=== PATIENT | male | born 1960 | race Caucasian/White ===

== ENCOUNTER 2016-10-22 06:39 | Day surgery (SDC) | payer BC ==
[~2016-10-22] VITALS: Ht 172.7 cm; Wt 103.7 kg
[~2016-10-22 06:39] MED LIST: ATORVASTATIN CA40 MG PO; CHOLEST OFF PL450 MG PO; CIALIS5 MG PO; FIBER GUMMIES1 EACH PO; FISH OIL 1,0001 EAC7 PO; FLEXERIL5 MG PO; IBUPROFEN600 MG PO; LO-DOSE ASPIRIN81 M2 PO; METOPROLOL PO; METOPROLOL SUCC50 MG PO; ONE DAILY FOR1 EACH PO; TRAMADOL HCL50 MG PO; TUMS500 MG PO; URINOZINC PROS1 EACH PO
[2016-10-22 19:50] VITALS: BP 137/71
[2016-10-23 01:26] VITALS: BP 128/65
[2016-10-23 04:35] LABS: EOSINOPHIL (%) 2.3 % (0-5); EOSINOPHIL COUNT 0.2 K/uL (0-0.3); HEMATOCRIT 42.1 % (38.0-50.0); IMMATURE GRANULOCYTE (%) 0.2 % (0.0-0.7); INSTRUMENT ABS NEUTROPHIL CT 4.9 K/uL; LYMPHOCYTE COUNT 2.8 K/uL (1.0-2.8); MCH 30.1 PG (29.0-34.0); MCHC 34.2 G/DL (30.0-36.0); MCV 88.1 FL (86-99); MEAN PLAT.VOLUME 10.4 uM^3 (9.0-12.4); MONOCYTE (%) 9.8 % (3-12); MONOCYTE COUNT 0.9 K/uL (0-0.8); NEUTROPHIL (%) 55.9 % (45-76); NEUTROPHIL COUNT 4.9 K/uL (1.8-6.4); PLATELET COUNT 164 K/uL (156-360); RBC DIS.WIDTH-CV 12.2 % (11.8-14.6); RBC DIS.WIDTH-SD 39.6 % (39-53); RED BLOOD COUNT 4.78 M/uL (4.00-5.50); WHITE BLOOD COUNT 8.8 K/uL (4.1-10.2)
[2016-10-23 04:46] LABS: CHLORIDE 107 mEq/L (99-109); POTASSIUM 4.3 mEq/L (3.7-5.4); SODIUM 139 mEq/L (136-147)
[2016-10-23 04:47] LABS: GLUCOSE 96 mg/dL (70-99)
[2016-10-23 04:49] LABS: ANION GAP 7 MEQ/L (2-14)
[2016-10-23 04:51] LABS: GFR ESTIMATE (CALCULATED) > 59 mL/min/
[2016-10-23 04:52] LABS: UREA NITROGEN (BUN) 13 mg/dL (9-23)
[2016-10-23 05:03] VITALS: BP 141/76
[2016-10-23 06:46] VITALS: BP 160/88
[2016-10-23 06:50] VITALS: BP 102/62
[2016-10-23] MEDS ORDERED: EFFIENT10 MG PO (09:08)
== END 2016-10-23 11:31 | disposition home or self-care (01) ==
LOC: CATH 06:39 → 2SOUTH 11:15 → 4EAST 14:26
PROVIDERS: Internal Medicine Cardiovascular Disease
DX: I25.10 Atherosclerotic heart disease of native coronary artery without angina pectoris (principal); I11.9 Hypertensive heart disease without heart failure; E78.5 Hyperlipidemia, unspecified; R55 Syncope and collapse; Z79.82 Long term (current) use of aspirin
CPT/HCPCS: 92978; 93458; C9600 ×2; 80048; 85025; 85347; 93005; C1725; C1769; C1874; C1887; G0378; J0153; J1200; J1644; J2250; J3010; J3246; J7030; J7050